=== PATIENT | female | born 1985 | race Asian ===

== ENCOUNTER 2016-11-28 15:33 | Emergency (ER) | payer OTHER | END 2016-11-28 16:24 | disposition home or self-care (01) | LOC: ED 15:33 | DX: O9A.213 Injury, poisoning and certain other consequences of external causes complicating pregnancy, third trimester (principal); S02.2XXA Fracture of nasal bones, initial encounter for closed fracture; V48.5XXA Car driver injured in noncollision transport accident in traffic accident, initial encounter; Y92.410 Unspecified street and highway as the place of occurrence of the external cause; Z3A.00 Weeks of gestation of pregnancy not specified ==

== ENCOUNTER 2016-11-28 16:13 | Outpatient (CLI) | payer OTHER ==
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
== END 2016-11-28 18:04 | disposition home or self-care (01) ==
LOC: FBC 16:13 → FBCOUT 16:13
PROVIDERS: ATTEND Obstetrics & Gynecology
DX: O26.893 Other specified pregnancy related conditions, third trimester (principal); S09.8XXA Other specified injuries of head, initial encounter; V89.2XXA Person injured in unspecified motor-vehicle accident, traffic, initial encounter; W22.10XA Striking against or struck by unspecified automobile airbag, initial encounter; Z3A.00 Weeks of gestation of pregnancy not specified
CPT/HCPCS: 59025; G0463